=== PATIENT | male | born 1965 ===

== ENCOUNTER → 2023-07-24 | Outpatient (CLI) | payer OTHER ==
[2023-07-24 10:57] LABS: Urine WBC None Seen /hpf (0 - 3)
[2023-07-24 11:12] LABS: Basophils # (auto) 0 10 ^3/uL (0-0.2); Basophils % (auto) 0.6 % (0.0-2.0); Eosinophils # (auto) 0.3 10 ^3/uL (0-0.8); Eosinophils % (auto) 4.1 % (0.0-7.0); Lymphocytes # (auto) 2.1 10 ^3/uL (0.4-5.4); Monocytes # (auto) 0.4 10 ^3/uL (0-1.3); Neutrophils # (auto) 4.2 10 ^3/uL (1.6-8.6); Neutrophils % (auto) 59.6 % (37.0-80.0); White Blood Cell 7.1 10^3/uL (4.4-10.8)
[2023-07-24 11:14] LABS: Hematocrit 44.1 % (41.0-53.0); Hemoglobin 14.2 g/dL (13.5-17.5); Lymphocytes % (auto) 30.3 % (10.0-50.0); Mean Corpuscular Hgb Conc. 32.1 g/dL (32.0-36.0); Mean Corpuscular Volume 74.8 fL (80.0-100.0); Monocytes % (auto) 5.4 % (0.0-12.0); Nucleated Red Blood Cells % 0.1 %; Red Cell Distribution Width 14.5 % (11.8-14.3)
[2023-07-24 11:22] LABS: Urine Bacteria NONE SEEN /hpf (None Seen); Urine Blood Negative /uL (Negative); Urine Clarity Clear (Clear); Urine Color Yellow (Yellow); Urine Protein, UAD Negative (Negative); Urine Specific Gravity 1.021 (1.001-1.035); Urine Urobilinogen Normal (Negative); Urine pH 5.5 (5.0-8.0)
[2023-07-24 11:24] LABS: Alanine Aminotransferase 37 U/L (7-40); Albumin 4.7 g/dL (3.2-4.8); Alkaline Phosphatase 75 U/L (46-116); Anion Gap 6 (5-15); Aspartate Aminotransferase 16 U/L (13-40); BUN/Creatinine Ratio 10.8 (10.0-20.0); Blood Urea Nitrogen 11 mg/dL (9-23); Carbon Dioxide 29 mmol/L (20-30); Chloride 103 mmol/L (98-107); Cholesterol 165 mg/dL (< 200); Glucose 183 mg/dL (74-106); HDL Cholesterol 33 mg/dL (40-59); LDL Cholesterol 120 mg/dL (< 100); Potassium 4.6 mmol/L (3.5-5.1); Sodium 138 mmol/L (136-145); Triglycerides 89 mg/dL (< 150)
[2023-07-24 11:25] LABS: Bilirubin, Total 0.7 mg/dL (0.2-1.0); Total Protein 7.2 g/dL (5.7-8.2)
[2023-07-24 11:35] LABS: Uric Acid 6.7 mg/dL (3.7-9.2)
== END | disposition home or self-care (01) ==
LOC: LAB 10:31
PROVIDERS: ATTEND Family Medicine
DX: Z12.11 Encounter for screening for malignant neoplasm of colon (principal); Z12.5 Encounter for screening for malignant neoplasm of prostate; E11.69 Type 2 diabetes mellitus with other specified complication; E78.5 Hyperlipidemia, unspecified; E11.59 Type 2 diabetes mellitus with other circulatory complications
CPT/HCPCS: 36415; 80053; 80061; 81001; 82043; 83036; 84153; 84443; 84550; 85025

== ENCOUNTER 2025-03-04 08:31 | Outpatient (CLI) | payer BC, OTHER ==
[2025-03-04 09:43] LABS: Hematocrit 44.5 % (41.0-53.0); Hemoglobin 14.6 g/dL (13.5-17.5); Mean Corpuscular Hemoglobin 24.5 pg (28.0-32.0); Mean Corpuscular Volume 74.9 fL (80.0-100.0); Nucleated Red Blood Cells % 0.0 %
[2025-03-04 10:24] LABS: Urine Protein, UAD Negative (Negative)
[2025-03-04 10:36] LABS: Alanine Aminotransferase 21 U/L (7-40); Alkaline Phosphatase 77 U/L (46-116); Anion Gap 10 (5-15); BUN/Creatinine Ratio 13.8 (10.0-20.0); Bilirubin, Total 0.4 mg/dL (0.2-1.0); Blood Urea Nitrogen 15 mg/dL (9-23); Carbon Dioxide 28 mmol/L (20-31); Chloride 102 mmol/L (98-107); Cholesterol 188 mg/dL (< 200); Potassium 4.5 mmol/L (3.5-5.1); Sodium 140 mmol/L (136-145); Total Protein 7.3 g/dL (5.7-8.2)
[2025-03-04 10:40] LABS: Calcium 10.9 mg/dL (8.7-10.4); Glucose 185 mg/dL (74-106); HDL Cholesterol 30 mg/dL (40-59); Triglycerides 152 mg/dL (< 150)
[2025-03-04 11:09] LABS: Albumin 5.0 g/dL (3.2-4.8)
[2025-03-04 11:31] LABS: Uric Acid 6.4 mg/dL (3.7-9.2)
== END 2025-03-04 17:00 | disposition home or self-care (01) ==
LOC: LAB 08:31
PROVIDERS: ATTEND Family Medicine
DX: C20 Malignant neoplasm of rectum (principal); N40.1 Benign prostatic hyperplasia with lower urinary tract symptoms; E11.22 Type 2 diabetes mellitus with diabetic chronic kidney disease; E11.21 Type 2 diabetes mellitus with diabetic nephropathy; E11.59 Type 2 diabetes mellitus with other circulatory complications; N18.2 Chronic kidney disease, stage 2 (mild); E78.2 Mixed hyperlipidemia; K43.9 Ventral hernia without obstruction or gangrene; R91.1 Solitary pulmonary nodule; I15.2 Hypertension secondary to endocrine disorders
CPT/HCPCS: 36415; 80053; 80061; 81001; 82043; 83036; 84153; 84443; 84550; 85025

== ENCOUNTER 2025-03-04 16:28 | Outpatient (CLI) | payer BC | END 2025-03-04 17:00 | disposition home or self-care (01) | LOC: LAB 16:28 | PROVIDERS: ATTEND Family Medicine | DX: Z12.11 Encounter for screening for malignant neoplasm of colon (principal) | CPT/HCPCS: 82270 ==